=== PATIENT | female | born 1930 | race African-American/Black ===

== ENCOUNTER 2018-03-29 19:05 | Inpatient (IN) | payer MEDICARE, OTHER ==
[~2018-03-29] VITALS: Ht 170.2 cm; Wt 80.3 kg
[2018-03-29] MEDS ORDERED: ALBUTEROL SULFATE 5 MG/ML 20 ML NEB SOLN [BULK] NEB ONE (19:15)
[2018-03-29] MEDS ORDERED: IPRATROPIUM BROMIDE 0.5 MG/2.5 ML NEB SOLUTION NEB ONE (19:15)
[2018-03-29] MEDS ORDERED: MethylPREDNISolone SOD SUCC 125 MG/2 ML VIAL IVP ONE (19:15)
[2018-03-29 19:23] LABS: GLUCOSE,POINT OF CARE 193 MG/DL (70-110)
[2018-03-29] MEDS: PROPOFOL 1000 MG/ISO-OSM 100 ML IV PRN ×2 (19:27→23:51)
[2018-03-29 19:39] LABS: BASOPHILS % (AUTO) 1.1 % (0.0-2.0); EOSINOPHILS % (AUTO) 2.9 % (1.0-6.0); HEMATOCRIT 41.4 % (36-46); HEMOGLOBIN 13.5 g/dL (12.0-16.0); LYMPHOCYTES % (AUTO) 39.4 % (22.0-44.0); MEAN CORPUSCULAR HEMOGLOBIN 26.6 pg (26.0-34.0); MEAN CORPUSCULAR HGB CONC 32.6 G/dL (31.0-37.0); MEAN CORPUSCULAR VOLUME 82 fL (80-100); MONOCYTES # (AUTO) 0.5 K/uL (0.1-1.0); MONOCYTES % (AUTO) 6.3 % (2.0-9.0); NEUTROPHILS # (AUTO) 3.8 K/uL (1.8-7.7); NEUTROPHILS % (AUTO) 50.3 % (40.0-70.0); PLATELET COUNT (AUTO) 315 K/uL (150-450); RED BLOOD CELL COUNT(AUTO) 5.07 MIL/uL (4.00-5.20); RED CELL DISTRIBUTION WIDTH 15.2 % (11.5-14.5)
[2018-03-29] MEDS ORDERED: 0.9% SODIUM CHLORIDE 5 ML NEB SOLUTION NEB ONE (19:45)
[2018-03-29 19:57] LABS: ABG A-A DIFF O2 98.5 mmHg (10-20.0); ABG BASE EXCESS -2.9 mmol/L (-2.0-3.0); ABG CARBOXYHEMOGLOBIN 1.1 % (0.0-1.5); ABG HCO3 21.8 mmol/L (22.0-26.0); ABG METHEMOGLOBIN 0.6 % (0.0-1.5); ABG OXYGEN CONTENT 20.3 mL/dL (15.0-23.0); ABG OXYGEN SATURATION 99.9 % (95.0-98.0); ABG OXYHEMOGLOBIN 98.2 % (94.0-100.0); ABG PCO2 50 mmHg (35-45); ABG PH 7.296 (7.35-7.450); ABG TOTAL HEMOGLOBIN 13.6 G/dL (12.0-18.0); SOURCE, BLOOD GAS ARTERIAL; TEMPERATURE, FAHRENHEIT, BG 98.6 FAHREN (96.0-98.6)
[2018-03-29 19:58] LABS: O2 DEVICE,BLOOD GAS VENTILATOR (ROOM AIR); PEEP,BG 5 cm H2O; SITE, BLOOD GAS RT RADIAL; VT, ABG 500 ml
[2018-03-29 19:59] LABS: ANION GAP 7 mmol/L (8-16); CALCIUM, TOTAL 8.3 mg/dL (8.8-10.5); CARBON DIOXIDE 26 mmol/L (22-29); CHLORIDE 106 mmol/L (98-107); CREATININE 0.82 mg/dL (0.60-1.30); GLOMERULAR FILTR. RATE CALC > 60 mL/min (>60); GLUCOSE,RANDOM 201 mg/dL (70-110); POTASSIUM 4.9 mmol/L (3.5-5.1); SODIUM SERUM 139 mmol/L (136-145); UREA NITROGEN, BLOOD 18 mg/dL (7-18)
[2018-03-29 20:03] LABS: B-TYPE NATRIURETIC PEPTIDE 324 pg/mL (0-100)
[2018-03-29 20:05] LABS: ALANINE AMINOTRANSFERASE 51 U/L (12-78); ALBUMIN 3.6 g/dL (3.4-5.0); ALKALINE PHOSPHATASE 110 U/L (46-116); ASPARTATE AMINOTRANSFERASE 70 U/L (15-37); BILIRUBIN,TOTAL 0.4 mg/dL (0.1-1.0); TOTAL PROTEIN, SERUM 7.1 g/dL (6.4-8.2)
[2018-03-29] MEDS ORDERED: ONDANSETRON HCL 4 MG/2 ML VIAL IVP PRN (20:30)
[2018-03-30] VITALS (7 sets, daily range): BP systolic 121–167; BP diastolic 69–105
[2018-03-30] MEDS: PROPOFOL 1000 MG/ISO-OSM 100 ML IV PRN ×5 (03:00→18:56)
[2018-03-30] MEDS ORDERED: METO50TA18 PO (04:30)
[2018-03-30] MEDS ORDERED: INDO25CA PO (04:30)
[2018-03-30] MEDS ORDERED: ASPI-1182 PO (04:30)
[2018-03-30] MEDS ORDERED: LOSA100T29 PO (04:30)
[2018-03-30] MEDS ORDERED: AMLO5TAB66 PO (04:30)
[2018-03-30] MEDS ORDERED: POTA-9 PO (04:30)
[2018-03-30] MEDS ORDERED: FURO20TA4 PO (04:30)
[2018-03-30] MEDS ORDERED: GEMF600T3 PO (04:30)
[2018-03-30] MEDS: HydrALAZINE HCL 20 MG/ML VIAL IVP PRN ×2 (07:01→12:11)
[2018-03-30] MEDS: ALBUTEROL SULFATE 2.5 MG/0.5 ML NEB SOLUTION NEB SCH ×5 (07:54→23:08)
[2018-03-30] MEDS: IPRATROPIUM BROMIDE 0.5 MG/2.5 ML NEB SOLUTION NEB SCH ×5 (07:54→23:07)
[2018-03-30 08:12] LABS: BASOPHILS % (AUTO) 0.3 % (0.0-2.0); EOSINOPHILS % (AUTO) 0.5 % (1.0-6.0); HEMATOCRIT 42.3 % (36-46); HEMOGLOBIN 13.9 g/dL (12.0-16.0); LYMPHOCYTES # (AUTO) 1.2 K/uL (1.0-4.8); LYMPHOCYTES % (AUTO) 10.4 % (22.0-44.0); MEAN CORPUSCULAR HEMOGLOBIN 26.5 pg (26.0-34.0); MEAN CORPUSCULAR HGB CONC 32.8 G/dL (31.0-37.0); MEAN CORPUSCULAR VOLUME 81 fL (80-100); MONOCYTES # (AUTO) 1.3 K/uL (0.1-1.0); MONOCYTES % (AUTO) 11.2 % (2.0-9.0); NEUTROPHILS # (AUTO) 8.7 K/uL (1.8-7.7); NEUTROPHILS % (AUTO) 77.6 % (40.0-70.0); PLATELET COUNT (AUTO) 255 K/uL (150-450); RED BLOOD CELL COUNT(AUTO) 5.23 MIL/uL (4.00-5.20); RED CELL DISTRIBUTION WIDTH 14.9 % (11.5-14.5)
[2018-03-30] MEDS: METOPROLOL TARTRATE 50 MG TABLET PO SCH ×2 (08:18→20:28)
[2018-03-30 08:29] LABS: ALANINE AMINOTRANSFERASE 51 U/L (12-78); ALBUMIN 3.7 g/dL (3.4-5.0); ALKALINE PHOSPHATASE 99 U/L (46-116); ANION GAP 8 mmol/L (8-16); ASPARTATE AMINOTRANSFERASE 65 U/L (15-37); BILIRUBIN,TOTAL 0.7 mg/dL (0.1-1.0); CALCIUM, TOTAL 9.1 mg/dL (8.8-10.5); CARBON DIOXIDE 27 mmol/L (22-29); CHLORIDE 105 mmol/L (98-107); CREATININE 0.79 mg/dL (0.60-1.30); GLOMERULAR FILTR. RATE CALC > 60 mL/min (>60); GLUCOSE,RANDOM 116 mg/dL (70-110); POTASSIUM 4.5 mmol/L (3.5-5.1); SODIUM SERUM 140 mmol/L (136-145); TOTAL PROTEIN, SERUM 7.2 g/dL (6.4-8.2); UREA NITROGEN, BLOOD 13 mg/dL (7-18)
[2018-03-30] MEDS ORDERED: ONDANSETRON HCL 4 MG/2 ML VIAL IVP PRN (08:30)
[2018-03-30] MEDS ORDERED: OxyCODONE HCL/ACETAMINOPHEN 5-325 MG TABLET PO PRN (08:30)
[2018-03-30] MEDS ORDERED: MORPHINE SULFATE 4 MG/ML SYRINGE IVP PRN (08:30)
[2018-03-30] MEDS ORDERED: ALBUTEROL SULFATE 2.5 MG/0.5 ML NEB SOLUTION NEB PRN (08:30)
[2018-03-30] MEDS ORDERED: IPRATROPIUM BROMIDE 0.5 MG/2.5 ML NEB SOLUTION NEB PRN (08:30)
[2018-03-30] MEDS: AmLODIPine BESYLATE 5 MG TABLET PO SCH (08:49)
[2018-03-30] MEDS: PANTOPRAZOLE SODIUM 40 MG/VIAL IVP SCH (08:49)
[2018-03-30] MEDS: ASPIRIN 81 MG EC TABLET PO SCH (08:50)
[2018-03-30] MEDS: ACETAMINOPHEN 325 MG TABLET PO PRN ×3 (08:53→21:31)
[2018-03-30] MEDS: GEMFIBROZIL 600 MG TABLET PO SCH (09:00)
[2018-03-30 09:34] LABS: ABG PCO2 28 mmHg (35-45); ABG PH 7.509 (7.35-7.450); SITE, BLOOD GAS RT RADIAL; SOURCE, BLOOD GAS ARTERIAL; TEMPERATURE, FAHRENHEIT, BG 98.6 FAHREN (96.0-98.6)
[2018-03-30 09:35] LABS: ABG BASE EXCESS -1.2 mmol/L (-2.0-3.0); ABG CARBOXYHEMOGLOBIN 0.5 % (0.0-1.5); ABG HCO3 24.6 mmol/L (22.0-26.0); ABG METHEMOGLOBIN 0.2 % (0.0-1.5); ABG OXYGEN CONTENT 19.7 mL/dL (15.0-23.0); ABG OXYGEN SATURATION 98.6 % (95.0-98.0); ABG OXYHEMOGLOBIN 97.5 % (94.0-100.0); ABG TOTAL HEMOGLOBIN 14.3 G/dL (12.0-18.0); PO2, ARTERIAL BG 109.7 mmHg (71.0-79.0)
[2018-03-30 09:36] LABS: ABG A-A DIFF O2 71.3 mmHg (10-20.0); O2 DEVICE,BLOOD GAS VENTILATOR (ROOM AIR); PEEP,BG 5 cm H2O; VT, ABG 500 ml
[2018-03-30] MEDS ORDERED: PNEUMOCOCCAL VACCINE POLYVALENT 0.5 ML VIAL [PPSV23] IM ONE (10:45)
[2018-03-30] MEDS ORDERED: ALBUTEROL SULFATE 2.5 MG/0.5 ML NEB SOLUTION NEB SCH (11:00)
[2018-03-30] MEDS ORDERED: IPRATROPIUM BROMIDE 0.5 MG/2.5 ML NEB SOLUTION NEB SCH (11:00)
[2018-03-30] MEDS: MethylPREDNISolone SOD SUCC 125 MG/2 ML VIAL IVP SCH ×3 (11:28→23:41)
[2018-03-30] MEDS: HEPARIN SODIUM,PORCINE 5,000 UNITS/ML VIAL SQ SCH ×2 (15:28→23:41)
[2018-03-30] MEDS: PrednisoLONE ACETATE 1% 5 ML OPHTHALMIC SUSPENSION OD SCH ×2 (15:29→20:28)
[2018-03-31] VITALS: BP 177/137
[2018-03-31] MEDS: PROPOFOL 1000 MG/ISO-OSM 100 ML IV PRN ×3 (00:59→09:05)
[2018-03-31] MEDS: HydrALAZINE HCL 20 MG/ML VIAL IVP PRN (03:06)
[2018-03-31] MEDS: ALBUTEROL SULFATE 2.5 MG/0.5 ML NEB SOLUTION NEB SCH ×6 (03:16→23:01)
[2018-03-31] MEDS: IPRATROPIUM BROMIDE 0.5 MG/2.5 ML NEB SOLUTION NEB SCH ×6 (03:16→23:01)
[2018-03-31 04:00] VITALS: BP 145/90
[2018-03-31 04:53] LABS: BASOPHILS % (AUTO) 0.1 % (0.0-2.0); EOSINOPHILS % (AUTO) 0 % (1.0-6.0); HEMATOCRIT 44.5 % (36-46); HEMOGLOBIN 14.8 g/dL (12.0-16.0); LYMPHOCYTES # (AUTO) 0.6 K/uL (1.0-4.8); LYMPHOCYTES % (AUTO) 4.3 % (22.0-44.0); MEAN CORPUSCULAR HEMOGLOBIN 26.8 pg (26.0-34.0); MEAN CORPUSCULAR HGB CONC 33.3 G/dL (31.0-37.0); MEAN CORPUSCULAR VOLUME 80 fL (80-100); MONOCYTES # (AUTO) 0.6 K/uL (0.1-1.0); MONOCYTES % (AUTO) 4.4 % (2.0-9.0); NEUTROPHILS # (AUTO) 11.9 K/uL (1.8-7.7); PLATELET COUNT (AUTO) 240 K/uL (150-450); RED BLOOD CELL COUNT(AUTO) 5.53 MIL/uL (4.00-5.20); RED CELL DISTRIBUTION WIDTH 15.1 % (11.5-14.5)
[2018-03-31 04:57] LABS: NEUTROPHILS % (AUTO) 91.2 % (40.0-70.0)
[2018-03-31 05:00] LABS: ALANINE AMINOTRANSFERASE 41 U/L (12-78); ALBUMIN 3.4 g/dL (3.4-5.0); ALKALINE PHOSPHATASE 95 U/L (46-116); ANION GAP 7 mmol/L (8-16); ASPARTATE AMINOTRANSFERASE 59 U/L (15-37); BILIRUBIN,TOTAL 1.1 mg/dL (0.1-1.0); CALCIUM, TOTAL 9.3 mg/dL (8.8-10.5); CARBON DIOXIDE 26 mmol/L (22-29); CHLORIDE 103 mmol/L (98-107); CREATININE 0.75 mg/dL (0.60-1.30); GLOMERULAR FILTR. RATE CALC > 60 mL/min (>60); GLUCOSE,RANDOM 137 mg/dL (70-110); POTASSIUM 4.4 mmol/L (3.5-5.1); SODIUM SERUM 136 mmol/L (136-145); TOTAL PROTEIN, SERUM 7.1 g/dL (6.4-8.2); UREA NITROGEN, BLOOD 17 mg/dL (7-18)
[2018-03-31] MEDS: MethylPREDNISolone SOD SUCC 125 MG/2 ML VIAL IVP SCH ×4 (05:21→23:20)
[2018-03-31 05:29] LABS: B-TYPE NATRIURETIC PEPTIDE 1500 pg/mL (0-100)
[2018-03-31 08:00] VITALS: BP 126/73
[2018-03-31] MEDS: PANTOPRAZOLE SODIUM 40 MG/VIAL IVP SCH (08:26)
[2018-03-31] MEDS: METOPROLOL TARTRATE 50 MG TABLET PO SCH ×2 (08:26→23:21)
[2018-03-31] MEDS: AmLODIPine BESYLATE 5 MG TABLET PO SCH (08:26)
[2018-03-31] MEDS: GEMFIBROZIL 600 MG TABLET PO SCH (08:26)
[2018-03-31] MEDS: HEPARIN SODIUM,PORCINE 5,000 UNITS/ML VIAL SQ SCH ×3 (08:26→23:21)
[2018-03-31] MEDS: ASPIRIN 81 MG EC TABLET PO SCH (08:26)
[2018-03-31] MEDS: PrednisoLONE ACETATE 1% 5 ML OPHTHALMIC SUSPENSION OD SCH ×2 (09:03→23:22)
[2018-03-31 10:52] LABS: ABG A-A DIFF O2 57.2 mmHg (10-20.0); ABG BASE EXCESS -0.5 mmol/L (-2.0-3.0); ABG CARBOXYHEMOGLOBIN 1.3 % (0.0-1.5); ABG HCO3 24.5 mmol/L (22.0-26.0); ABG METHEMOGLOBIN 0.5 % (0.0-1.5); ABG OXYGEN CONTENT 19.2 mL/dL (15.0-23.0); ABG OXYGEN SATURATION 98.2 % (95.0-98.0); ABG OXYHEMOGLOBIN 96.4 % (94.0-100.0); ABG PCO2 36 mmHg (35-45); ABG PH 7.432 (7.35-7.450); ABG TOTAL HEMOGLOBIN 14.1 G/dL (12.0-18.0); O2 DEVICE,BLOOD GAS VENTILATOR (ROOM AIR); PO2, ARTERIAL BG 113.6 mmHg (71.0-79.0); SITE, BLOOD GAS RT RADIAL; SOURCE, BLOOD GAS ARTERIAL; TEMPERATURE, FAHRENHEIT, BG 99.4 FAHREN (96.0-98.6)
[2018-03-31 10:53] LABS: PEEP,BG 5 cm H2O; VT, ABG 500 ml
[2018-03-31 12:00] VITALS: BP 148/93
[2018-03-31 15:47] LABS: ABG A-A DIFF O2 63.7 mmHg (10-20.0); ABG BASE EXCESS 2.5 mmol/L (-2.0-3.0); ABG CARBOXYHEMOGLOBIN 1.4 % (0.0-1.5); ABG HCO3 26.8 mmol/L (22.0-26.0); ABG METHEMOGLOBIN 0.6 % (0.0-1.5); ABG OXYGEN CONTENT 19.4 mL/dL (15.0-23.0); ABG OXYGEN SATURATION 98.1 % (95.0-98.0); ABG OXYHEMOGLOBIN 96.1 % (94.0-100.0); ABG PCO2 38 mmHg (35-45); ABG PH 7.455 (7.35-7.450); ABG TOTAL HEMOGLOBIN 14.3 G/dL (12.0-18.0); PO2, ARTERIAL BG 104.6 mmHg (71.0-79.0); SOURCE, BLOOD GAS ARTERIAL; TEMPERATURE, FAHRENHEIT, BG 99.5 FAHREN (96.0-98.6)
[2018-03-31 15:48] LABS: O2 DEVICE,BLOOD GAS VENTILATOR (ROOM AIR); PEEP,BG 5 cm H2O; PRESSURE SUPPORT, BG 8 cm H2O; SITE, BLOOD GAS RT RADIAL; VENT MODE, BG Press. Support Vent. (ROOM AIR)
[2018-03-31 16:00] VITALS: BP 144/75
[2018-03-31] MEDS: CefTRIAXone SODIUM 1 GM in DEXTROSE 5%-WATER 10 ML IV SCH (17:11)
[2018-03-31 20:00] VITALS: BP 142/69
[2018-03-31] MEDS: ACETAMINOPHEN 325 MG TABLET PO PRN (23:24)
[2018-04-01] VITALS: BP 130/75
[2018-04-01] MEDS: ALBUTEROL SULFATE 2.5 MG/0.5 ML NEB SOLUTION NEB SCH ×6 (03:41→23:13)
[2018-04-01] MEDS: IPRATROPIUM BROMIDE 0.5 MG/2.5 ML NEB SOLUTION NEB SCH ×6 (03:41→23:13)
[2018-04-01 04:00] VITALS: BP 135/75
[2018-04-01] MEDS: MethylPREDNISolone SOD SUCC 125 MG/2 ML VIAL IVP SCH ×3 (05:40→18:15)
[2018-04-01 08:00] VITALS: BP 135/74
[2018-04-01] MEDS: AmLODIPine BESYLATE 5 MG TABLET PO SCH (08:45)
[2018-04-01] MEDS: GEMFIBROZIL 600 MG TABLET PO SCH (08:45)
[2018-04-01] MEDS: METOPROLOL TARTRATE 50 MG TABLET PO SCH ×2 (08:45→20:39)
[2018-04-01] MEDS: ASPIRIN 81 MG EC TABLET PO SCH (08:45)
[2018-04-01] MEDS: PANTOPRAZOLE SODIUM 40 MG/VIAL IVP SCH (08:45)
[2018-04-01] MEDS: PrednisoLONE ACETATE 1% 5 ML OPHTHALMIC SUSPENSION OD SCH ×2 (08:48→21:00)
[2018-04-01] MEDS: HEPARIN SODIUM,PORCINE 5,000 UNITS/ML VIAL SQ SCH ×2 (08:50→16:51)
[2018-04-01 12:00] VITALS: BP 116/70
[2018-04-01 15:57] VITALS: BP 155/92
[2018-04-01] MEDS: CefTRIAXone SODIUM 1 GM in DEXTROSE 5%-WATER 10 ML IV SCH (16:52)
[2018-04-01 20:16] VITALS: BP 117/63
[2018-04-02] VITALS (7 sets, daily range): BP systolic 67–133; BP diastolic 45–75
[2018-04-02] MEDS: MethylPREDNISolone SOD SUCC 125 MG/2 ML VIAL IVP SCH ×4 (00:16→18:09)
[2018-04-02] MEDS: HEPARIN SODIUM,PORCINE 5,000 UNITS/ML VIAL SQ SCH ×3 (00:16→15:44)
[2018-04-02] MEDS: BENZOCAINE/MENTHOL LOZENGE PO PRN ×2 (00:16→20:47)
[2018-04-02] MEDS: IPRATROPIUM BROMIDE 0.5 MG/2.5 ML NEB SOLUTION NEB SCH ×6 (03:14→22:45)
[2018-04-02] MEDS: ALBUTEROL SULFATE 2.5 MG/0.5 ML NEB SOLUTION NEB SCH ×6 (03:14→22:45)
[2018-04-02] MEDS: GEMFIBROZIL 600 MG TABLET PO SCH (08:22)
[2018-04-02] MEDS: ASPIRIN 81 MG EC TABLET PO SCH (08:23)
[2018-04-02] MEDS: AmLODIPine BESYLATE 5 MG TABLET PO SCH (08:23)
[2018-04-02] MEDS: METOPROLOL TARTRATE 50 MG TABLET PO SCH ×2 (08:24→20:47)
[2018-04-02] MEDS: PANTOPRAZOLE SODIUM 40 MG/VIAL IVP SCH (08:25)
[2018-04-02] MEDS: PrednisoLONE ACETATE 1% 5 ML OPHTHALMIC SUSPENSION OS SCH ×4 (09:06→20:47)
[2018-04-02] MEDS: CefTRIAXone SODIUM 1 GM in DEXTROSE 5%-WATER 10 ML IV SCH (15:39)
[2018-04-03] VITALS (7 sets, daily range): BP systolic 117–136; BP diastolic 60–92
[2018-04-03] MEDS: MethylPREDNISolone SOD SUCC 125 MG/2 ML VIAL IVP SCH ×2 (00:56→06:11)
[2018-04-03] MEDS: HEPARIN SODIUM,PORCINE 5,000 UNITS/ML VIAL SQ SCH ×3 (00:56→17:36)
[2018-04-03] MEDS: ALBUTEROL SULFATE 2.5 MG/0.5 ML NEB SOLUTION NEB SCH ×6 (02:53→22:50)
[2018-04-03] MEDS: IPRATROPIUM BROMIDE 0.5 MG/2.5 ML NEB SOLUTION NEB SCH ×6 (02:53→22:50)
[2018-04-03] MEDS: ASPIRIN 81 MG EC TABLET PO SCH (09:52)
[2018-04-03] MEDS: PrednisoLONE ACETATE 1% 5 ML OPHTHALMIC SUSPENSION OS SCH ×4 (09:52→21:16)
[2018-04-03] MEDS: GEMFIBROZIL 600 MG TABLET PO SCH (09:52)
[2018-04-03] MEDS: AmLODIPine BESYLATE 5 MG TABLET PO SCH (09:52)
[2018-04-03] MEDS: PANTOPRAZOLE SODIUM 40 MG/VIAL IVP SCH (09:52)
[2018-04-03] MEDS: METOPROLOL TARTRATE 50 MG TABLET PO SCH ×2 (09:53→21:16)
[2018-04-03] MEDS: PredniSONE 20 MG TABLET PO SCH (14:35)
[2018-04-03] MEDS: CefTRIAXone SODIUM 1 GM in DEXTROSE 5%-WATER 10 ML IV SCH (17:36)
[2018-04-03 18:07] LABS: BASOPHILS % (AUTO) 0.2 % (0.0-2.0); EOSINOPHILS % (AUTO) 0 % (1.0-6.0); HEMATOCRIT 42.6 % (36-46); HEMOGLOBIN 14.2 g/dL (12.0-16.0); LYMPHOCYTES # (AUTO) 0.4 K/uL (1.0-4.8); MEAN CORPUSCULAR HEMOGLOBIN 26.7 pg (26.0-34.0); MEAN CORPUSCULAR HGB CONC 33.3 G/dL (31.0-37.0); MEAN CORPUSCULAR VOLUME 80 fL (80-100); MONOCYTES # (AUTO) 0.7 K/uL (0.1-1.0); MONOCYTES % (AUTO) 6.9 % (2.0-9.0); NEUTROPHILS # (AUTO) 8.5 K/uL (1.8-7.7); PLATELET COUNT (AUTO) 250 K/uL (150-450); RED BLOOD CELL COUNT(AUTO) 5.32 MIL/uL (4.00-5.20); RED CELL DISTRIBUTION WIDTH 14.7 % (11.5-14.5)
[2018-04-03 18:08] LABS: NEUTROPHILS % (AUTO) 88.9 % (40.0-70.0)
[2018-04-03 18:12] LABS: ANION GAP 8 mmol/L (8-16); CALCIUM, TOTAL 8.8 mg/dL (8.8-10.5); CARBON DIOXIDE 25 mmol/L (22-29); CHLORIDE 102 mmol/L (98-107); CREATININE 0.84 mg/dL (0.60-1.30); GLOMERULAR FILTR. RATE CALC > 60 mL/min (>60); GLUCOSE,RANDOM 122 mg/dL (70-110); POTASSIUM 4.6 mmol/L (3.5-5.1); SODIUM SERUM 135 mmol/L (136-145); UREA NITROGEN, BLOOD 21 mg/dL (7-18)
[2018-04-03 18:29] LABS: B-TYPE NATRIURETIC PEPTIDE 643 pg/mL (0-100)
[2018-04-04] MEDS: HEPARIN SODIUM,PORCINE 5,000 UNITS/ML VIAL SQ SCH ×3 (00:09→16:00)
[2018-04-04 00:19] VITALS: BP 136/75
[2018-04-04] MEDS: IPRATROPIUM BROMIDE 0.5 MG/2.5 ML NEB SOLUTION NEB SCH ×4 (02:47→16:13)
[2018-04-04] MEDS: ALBUTEROL SULFATE 2.5 MG/0.5 ML NEB SOLUTION NEB SCH ×4 (02:47→16:13)
[2018-04-04 05:24] VITALS: BP 126/80
[2018-04-04 07:56] VITALS: BP 120/77
[2018-04-04] MEDS: PrednisoLONE ACETATE 1% 5 ML OPHTHALMIC SUSPENSION OS SCH ×3 (08:33→16:00)
[2018-04-04] MEDS: PANTOPRAZOLE SODIUM 40 MG/VIAL IVP SCH (08:33)
[2018-04-04] MEDS: GEMFIBROZIL 600 MG TABLET PO SCH (08:33)
[2018-04-04] MEDS: PredniSONE 20 MG TABLET PO SCH (08:33)
[2018-04-04] MEDS: METOPROLOL TARTRATE 50 MG TABLET PO SCH (08:33)
[2018-04-04] MEDS: AmLODIPine BESYLATE 5 MG TABLET PO SCH (08:33)
[2018-04-04] MEDS: ASPIRIN 81 MG EC TABLET PO SCH (08:34)
[2018-04-04] MEDS ORDERED: LEVOFLOXACIN 500 MG TABLET PO SCH (09:00)
[2018-04-04 12:02] VITALS: BP 127/70
[2018-04-04] MEDS ORDERED: LEVO500 PO (15:14)
[2018-04-04] MEDS: CefTRIAXone SODIUM 1 GM in DEXTROSE 5%-WATER 10 ML IV SCH (16:00)
[2018-04-04 16:45] VITALS: BP 144/76
== END 2018-04-04 19:05 | disposition home or self-care (01) | DRG 208 ==
LOC: EMS 19:06 → ICU 20:00 → 5S 04-01 14:55
PROVIDERS: ADMIT Hospitalist; ATTEND Hospitalist
PROC: 5A1945Z Respiratory Ventilation, 24-96 Consecutive Hours (ICD-10-PCS; principal; 2018-03-29)
PROC: 0BH17EZ Insertion of Endotracheal Airway into Trachea, Via Natural or Artificial Opening (ICD-10-PCS; 2018-03-29)
PROC: 3E0234Z Introduction of Serum, Toxoid and Vaccine into Muscle, Percutaneous Approach (ICD-10-PCS; 2018-03-30)
DX: J96.00 Acute respiratory failure, unspecified whether with hypoxia or hypercapnia (principal); E87.2 Acidosis; I50.22 Chronic systolic (congestive) heart failure; J45.901 Unspecified asthma with (acute) exacerbation; J45.902 Unspecified asthma with status asthmaticus; E78.5 Hyperlipidemia, unspecified; I11.0 Hypertensive heart disease with heart failure; Z88.0 Allergy status to penicillin; Z88.1 Allergy status to other antibiotic agents; Z23 Encounter for immunization; Z78.1 Physical restraint status
CPT/HCPCS: 71250; 82805; 84145; 87070; 87081; 87147; 87205; 92610; 93005; 94002; 94003; 94640; 94644; 96374; 97162; 97165; 97530; 97535; 99291; C9113; J0360; J0696; J1644; J2405; J2704; J2930; J7060